=== PATIENT | male | born 2005 | race Caucasian/White ===

== ENCOUNTER 2023-11-14 23:59 | Emergency (ER) | payer MEDICAID ==
[~2023-11-14] VITALS: Ht 170.2 cm; Wt 57.6 kg
[2023-11-15 00:07] VITALS: BP 117/71; PULSE 69; RESP 16; TEMP 98.7; O2SAT 98
[2023-11-15] MEDS: KETOROLAC 30 MG/ML VIAL IM ONE (00:45)
[2023-11-15] MEDS ORDERED: AMOX1TAB8 PO (01:35)
[2023-11-15] MEDS ORDERED: IBUP-1842 PO (01:35)
== END 2023-11-15 01:41 | disposition home or self-care (01) ==
LOC: MED 23:59
DX: H66.92 Otitis media, unspecified, left ear (principal); R51.9 Headache, unspecified; J02.9 Acute pharyngitis, unspecified; R11.2 Nausea with vomiting, unspecified; Z79.899 Other long term (current) drug therapy
CPT/HCPCS: 96372; 99283; J1885